=== PATIENT | female | born 2000 | race Caucasian/White ===

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

== ENCOUNTER 2019-07-22 21:32 | Emergency (ER) | payer OTHER ==
[~2019-07-22] VITALS: Ht 170.2 cm; Wt 64.5 kg
[~2019-07-22 21:32] MED LIST: INTUNIV2 MG PO; VYVANSE60 MG PO; ZANTAC 150150 MG PO
[2019-07-22 21:38] VITALS: TEMP 97.7
[2019-07-22 22:05] LABS: STREP SCREEN NEGATIVE
[2019-07-22 22:37] VITALS: BP 118/68; PULSE 84
== END 2019-07-22 22:37 | disposition home or self-care (01) ==
LOC: COL.ER 21:32
PROVIDERS: Nurse Practitioner
DX: J02.9 Acute pharyngitis, unspecified (principal); F90.9 Attention-deficit hyperactivity disorder, unspecified type; F17.210 Nicotine dependence, cigarettes, uncomplicated